=== PATIENT | male | born 1960 | race Caucasian/White ===

== ENCOUNTER 2021-10-10 16:43 | Emergency (ER) | payer OTHER ==
[2021-10-10] MEDS ORDERED: LORazepam 2 MG/ML SDV IM ONE (17:30)
[2021-10-10] MEDS ORDERED: Haloperidol Lactate 5 MG/ML SDV IM ONE (17:30)
== END 2021-10-10 20:15 ==
LOC: MW.ED 16:43
DX: S01.112A Laceration without foreign body of left eyelid and periocular area, initial encounter (principal); F10.129 Alcohol abuse with intoxication, unspecified; V49.9XXA Car occupant (driver) (passenger) injured in unspecified traffic accident, initial encounter; Y92.410 Unspecified street and highway as the place of occurrence of the external cause
CPT/HCPCS: 70450; 72125; 96372; 99284; J1630; J2060